=== PATIENT | female | born 1980 | race Caucasian/White ===

== ENCOUNTER 2016-08-11 02:54 | Emergency (ER) ==
[2016-08-11] MEDS ORDERED: ZOFRAN IM ONE (03:07)
[2016-08-11] MEDS ORDERED: SODIUM CHLORIDE 0.9% INJ ONE ×2 (03:28)
[2016-08-11] MEDS ORDERED: PROTONIX IV ONE (03:28)
[2016-08-11] MEDS ORDERED: M.V.I.-12 10 ML, FOLIC ACID 1 MG, MAGNESIUM SULFATE 1 GM, THIAMINE 100 MG in NS 1,000 ML IV ONE (03:28)
[2016-08-11] MEDS ORDERED: PHENERGAN IV ONE (03:28)
[2016-08-11 03:40] LABS: MANUAL DIFF NEEDED? NO
[2016-08-11 03:42] LABS: BASO% 0.4 % (0.0-0.8); EOS# 0.04 X1000 (0.0-0.7); EOS% 0.6 % (0.0-10.0); HEMOGLOBIN 13.5 g/dL (12.0-16.0); LYMPH# 1.64 X1000 (1.2-3.4); LYMPH% 24.4 % (20.5-51.1); MCHC 32.9 g/dL (33-37); MONO# 0.43 X1000 (0.11-0.59); MONO% 6.4 % (1.7-9.3); MPV 13.4 FL (7.4-10.4); NEUT% 68.2 % (42.2-75.2); PLT 132 X1000 (130-400); RBC 4.36 XMIL (4.2-5.4)
--- NOTE | 2016-08-11 03:48 | PROVIDER DOCUMENTATION ---
HPI-Abdominal Pain/GI Problem - General Chief Complaint: Intoxicated Stated Complaint: VOMITING Time Seen by Provider: 08/11/16 03:27 Allergies/Adverse Reactions: Patient Allergies Allergy/AdvReac Type Severity Reaction Status Date / Time venom-honey bee Allergy ANAPHYLAXIS Verified 08/11/16 03:16 [bee venom (honey bee)] Home Medications: Home Medication List Medication Instructions Recorded Confirmed Last Taken Type Ondansetron Odt [Zofran 4 mg Odt] 4 mg PO Q6H PRN PRN #10 tablet 08/11/16 Unknown Rx Pantoprazole [Protonix] 40 mg PO DAILY@0700 #30 tablet 08/11/16 Unknown Rx - History of Present Illness-ABD Nature of Presenting Problems: upper abdom pain w/nausea since last nitgh /pt was having alot of bacardy shots ...no other medical problems Abdominal Pain Onset Location: reports: epigastric Pain Radiation: reports: epigastric Quality of Pain: reports: burning, cramping, indigestion Severity in ED: reports: moderate Onset/Duration: reports: 1-3 hours ago Timing: reports: still present Associated Symptoms: reports: heartburn, malaise, nausea, vomiting Last BM: 24 hours ago Rectal Bleeding: reports: none Rectal Pain: reports: none Emesis Description: reports: none Bruising or Bleeding Gums?: No Similar Symptoms Previously?: No Recently seen or treated by another doctor?: No Review of Systems - Adult - REVIEW OF SYSTEMS - ADULT Constitutional: reports: see HPI Eyes: reports: see HPI All Other Systems: Reviewed and Negative Past History - Adult - PAST MEDICAL HISTORY-ADULT Review of Records: reports: Old Records Reviewed, Nursing Assessment Review Major Childhood Illnesses: reports: denies history Cardiovascular: reports: denies history Respiratory: reports: denies history Gastrointestinal: reports: denies history Obstetrical/Gynecological: reports: denies history Genitourinary: reports: denies history Musculoskeletal: reports: denies history Neurological: reports: denies history Endocrine/Immune: reports: denies history Other Conditions: reports: denies history - PRIOR SURGERIES/PROCEDURES Surgical/Procedure History: reports: , other (fallopian tube removal) - IMMUNIZATION STATUS Childhood Immunizations: See Nurse Assessment Flu Vaccine: See Nurse Assessment - FAMILY HISTORY Family History: reviewed, not pertinent - SOCIAL HISTORY Smoking: less than 1 pack/day Provider spent 3-5 mins advising pt. on dangers of tobacco.: Discussed manners to quit use, and f/u contacts for add'l counseling. Substance Use: none presently/history of abuse Alcohol Use Frequency: once a week Number of drinks per typical drinking period:: 5-10 drinks Physical Exam-General - PHYSICAL EXAM-ADULT Initial Vital Signs Reviewed: Yes - CONSTITUTIONAL General Appearance: alert, anxious - EYES Eyes: PERRL/EOMI - HEAD, EARS, NOSE, MOUTH & THROAT HENMT: normocephalic/atraumatic, normal ENT inspection, TMs normal, pharynx normal - NECK Neck: non-tender - RESPIRATORY Respiratory: chest non-tender, lungs clear, normal breath sounds, no pleuratic chest pain, no respiratory distress, no accessory muscle use - CARDIOVASCULAR Cardiovascular: normal peripheral pulses, regular rate, rhythm, no edema - GASTROINTESTINAL (ABDOMEN) Abdominal Exam: normal bowel sounds, soft, no organomegaly, no pulsatile mass, tenderness (epigastric) - LYMPHATIC Lymphatic: no adenopathy - MUSCULOSKELETAL Back Exam: normal inspection, no CVA tenderness, no vertebral tenderness Extremity: normal inspection, no pedal edema, no calf tenderness, normal capillary refill - SKIN Integumentary: normal color, normal turgor, warm/dry - NEUROLOGIC Neurologic: back tender pulp drier II-XII nml as tested, grossly normal, no motor/sensory deficits - PSYCHIATRIC Psych/Mental Status: normal mood/affect, oriented x 3 Departure - Departure Time of Disposition Order: 04:22 DIAGNOSIS: Abdominal pain, ETOH abuse Disposition: HOME 01 Certified Medical Emergency: Emergent Condition: Stable Prescriptions: Pantoprazole [Protonix] 40 mg PO DAILY@0700 #30 tablet Ondansetron Odt [Zofran 4 mg Odt] 4 mg PO Q6H PRN PRN #10 tablet PRN Reason: Nausea And Vomiting Referrals: None,PCP [Primary Care Provider] -
[2016-08-11 04:12] LABS: AGAP 14; ALBUMIN 4.4 g/dL (3.5-5.0); ALKALINE PHOSPHATASE 47 U/L (32-104); BUN 7 mg/dL (8-22); CALCIUM 8.8 mg/dL (8.8-10.2); CHLORIDE 107 mmol/L (98-107); COSMO 284; GOT 12 U/L (10-30); GPT 10 U/L (10-36); MAGNESIUM 2.1 mg/dL (1.5-2.7); POTASSIUM 3.8 mmol/L (3.5-5.1); SODIUM 143 mmol/L (136-145); TCO2 22 mmol/L (25-35); TOTAL BILIRUBIN 0.13 mg/dL (0.20-1.00); TOTAL PROTEIN 7.1 g/dL (6.3-8.3)
[2016-08-11 05:09] VITALS: BP 98/52
== END 2016-08-11 05:09 | disposition home or self-care (01) ==
LOC: ED 02:54
DX: R10.13 Epigastric pain (principal); R10.10 Upper abdominal pain, unspecified; F10.10 Alcohol abuse, uncomplicated; R11.2 Nausea with vomiting, unspecified; K30 Functional dyspepsia; R12 Heartburn; R53.81 Other malaise; R10.816 Epigastric abdominal tenderness; F17.210 Nicotine dependence, cigarettes, uncomplicated; Z71.6 Tobacco abuse counseling
CPT/HCPCS: 80053; 83735; 85025; C9113; G0480; J2405; J2550; J3411; J3475; J7030; 80320; S0164

== ENCOUNTER 2016-08-24 04:41 | Emergency (ER) ==
[2016-08-24] MEDS ORDERED: DILAUDID IV ONE (05:15)
[2016-08-24] MEDS ORDERED: NS 1,000 ML IV ONE (05:15)
[2016-08-24] MEDS ORDERED: ZOFRAN IV ONE (05:16)
--- NOTE | 2016-08-24 05:27 | PROVIDER DOCUMENTATION ---
HPI-Abdominal Pain/GI Problem - General Source: patient - History of Present Illness-ABD Nature of Presenting Problems: 35 yo WF awoke from sleep about 2 hours ago with severe , cramping flank pain radiating towards groin and nausea but no vomiting. She denies hematuria and any history of kidney stones or GB disease. Abdominal Pain Onset Location: reports: RUQ, flank Pain Radiation: reports: groin Quality of Pain: reports: cramping, sharp Severity in ED: reports: severe Onset/Duration: reports: 1-3 hours ago Timing: reports: still present, getting worse Activities at Onset: reports: sleep Exposure to sick contacts?: No Modifying Factors: improves with: movement, other (standing) Associated Symptoms: reports: nausea Last BM: unsure Rectal Bleeding: reports: none Rectal Pain: reports: none # of Vomiting Episodes: 0 Bruising or Bleeding Gums?: No Similar Symptoms Previously?: No Recently seen or treated by another doctor?: No <Atul Corona - Last Filed: 08/24/16 05:58> <Mark Blanco - Last Filed: 08/25/16 10:31> - General Chief Complaint: Flank Pain Stated Complaint: RT SIDE PAIN, NAUSEA Time Seen by Provider: 08/24/16 05:00 Allergies/Adverse Reactions: Patient Allergies Allergy/AdvReac Type Severity Reaction Status Date / Time venom-honey bee Allergy Severe ANAPHYLAXIS Verified 08/24/16 04:48 [bee venom (honey bee)] Home Medications: Home Medication List Medication Instructions Recorded Confirmed Last Taken Type Ciprofloxacin HCl [Cipro] 500 mg PO BID #14 tablet 08/24/16 Unknown Rx Famotidine [Pepcid] 20 mg PO BID #30 tablet 08/24/16 Unknown Rx Ondansetron Odt [Zofran 4 mg Odt] 4 mg PO Q6H PRN PRN #10 tablet 08/24/16 Unknown Rx Tramadol [Ultram] 50 mg PO TID #30 tablet 08/24/16 Unknown Rx Review of Systems - Adult - REVIEW OF SYSTEMS - ADULT Constitutional: reports: no symptoms reported Eyes: reports: no symptoms reported Ears, Nose, Mouth & Throat: reports: no symptoms reported Cardiovascular: reports: no symptoms reported Respiratory: reports: no symptoms reported Gastrointestinal: reports: abdominal pain Genitourinary: reports: dysuria Musculoskeletal: reports: see HPI Integumentary: reports: no symptoms reported Neurological: reports: no symptoms reported Psychiatric: reports: no symptoms reported Endocrine: reports: no symptoms reported Hematologic/Lymphatic: reports: no symptoms reported Allergic/Immunologic: reports: no symptoms reported <Atul Corona - Last Filed: 08/24/16 05:58> Past History - Adult - PAST MEDICAL HISTORY-ADULT Review of Records: reports: Old Records Reviewed, Nursing Assessment Review, Medications Reviewed, Social history reviewed & non-contributory. Major Childhood Illnesses: reports: denies history Cardiovascular: reports: denies history Respiratory: reports: denies history Gastrointestinal: reports: denies history Obstetrical/Gynecological: reports: denies history Genitourinary: reports: denies history Musculoskeletal: reports: denies history Neurological: reports: denies history Endocrine/Immune: reports: denies history Other Conditions: reports: denies history - PRIOR SURGERIES/PROCEDURES Surgical/Procedure History: reports: , other (fallopian tube removal) - IMMUNIZATION STATUS Childhood Immunizations: See Nurse Assessment Flu Vaccine: See Nurse Assessment - FAMILY HISTORY Family History: reviewed, not pertinent <Atul Corona - Last Filed: 08/24/16 05:58> Physical Exam-General - PHYSICAL EXAM-ADULT Initial Vital Signs Reviewed: Yes - CONSTITUTIONAL General Appearance: alert, moderate distress - EYES Eyes: PERRL/EOMI, pink conjunctivae - HEAD, EARS, NOSE, MOUTH & THROAT HENMT: normocephalic/atraumatic, moist mucous membranes, normal ENT inspection - NECK Neck: non-tender, full range of motion, supple - RESPIRATORY Respiratory: chest non-tender, lungs clear, normal breath sounds - CARDIOVASCULAR Cardiovascular: normal peripheral pulses, regular rate, rhythm - CHEST (BREASTS) Chest/Breast: deferred - GASTROINTESTINAL (ABDOMEN) Abdominal Exam: normal bowel sounds, no pulsatile mass, tenderness, Zelaya's sign, psoas - GENITOURINARY Female Genitalia/Pelvic Exam: deferred Rectal Exam: deferred - LYMPHATIC Lymphatic: no adenopathy - MUSCULOSKELETAL Back Exam: CVA tenderness Extremity: normal range of motion Peripheral Pulses: radial (R): 3+, radial (L): 3+ - SKIN Integumentary: normal color, normal turgor, warm/dry - NEUROLOGIC Neurologic: grossly normal - PSYCHIATRIC Psych/Mental Status: normal mood/affect <Atul Corona - Last Filed: 08/24/16 05:58> Progress - PLAN OF CARE/RESULTS Progress/Plan/Lab Results: Orders Category Date Time Status CT ABD/PELVIS W/ IV CONT ONLY [CT] Stat Exams 08/24/16 05:13 Ordered CBC WITH ELECTRONIC DIFF [HEME] Stat Lab 08/24/16 05:12 Uncollected COMPREHENSIVE METABOLIC PANEL [CHEM] Stat Lab 08/24/16 05:12 Uncollected UA NIMS W/REFLEX CULT [URINALYSIS] Stat Lab 08/24/16 05:12 Uncollected 0.9% Sodium Chloride Inj [Ns] 1,000 ml Med 08/24/16 05:15 Active IV 999 mls/hr Hydromorphone [Dilaudid] Med 08/24/16 05:15 Discontinued 1 mg IV NOW ONE Ondansetron [Zofran] Med 08/24/16 05:16 Discontinued 4 mg IV NOW ONE Vital Signs Temp Pulse Resp BP Pulse Ox 08/24/16 04:46 97.7 F 86 16 119/68 100 venom-honey bee [bee venom (honey bee)] Allergy (Severe, Verified 08/24/16 04:48 ) ANAPHYLAXIS No Home Medications 08/24/16 I&O 08/22/16 08/23/16 08/24/16 06:59 06:59 06:59 Output Total 40 Balance -40 Laboratory Tests 08/24/16 08/24/16 05:25 05:47 WBC 5.52 RBC 4.27 Hgb 13.2 Hct 40.8 MCV 95.6 MCH 30.9 MCHC 32.4 L RDW Std Deviation 13.6 Plt Count 121 L MPV 13.4 H Immature Gran % (Auto) 0.0 Neut % (Auto) 56.3 Lymph % (Auto) 31.0 Dillon % (Auto) 9.8 H Eos % (Auto) 2.2 Baso % (Auto) 0.7 Immature Gran # (Auto) 0.00 Neut # (Auto) 3.11 Lymph # (Auto) 1.71 Dillon # (Auto) 0.54 Eos # (Auto) 0.12 Baso # (Auto) 0.04 Urine Source CLEAN CATCH Urine Color YELLOW Urine Turbidity CLEAR Urine pH 5.5 Ur Specific Keeling 1.021 Urine Protein NEGATIVE Ur Glucose (Stick) NEGATIVE Ur Ketones (Stick) NEGATIVE Urine Blood NEGATIVE Urine Nitrite NEGATIVE Urine Bilirubin NEGATIVE Urobilinogen Dipstick NORMAL Urine Leukocytes MODERATE A Urine WBC (Auto) 10-20 A Urine RBC (Auto) <10 U Epithel Cells (Auto) <10 Urine Bacteria (Auto) 3+ - CHANGE OF SHIFT REPORT (ED Provider) Report Given and Care Transferred to:: Dr Blanco Time of Transfer: 06:00 Items Pending: CT/MRI Results, Pain Control Tentative Impression of Patient: GB dz or kidney stone <Atul Corona - Last Filed: 08/24/16 05:58> Departure <Atul Corona - Last Filed: 08/24/16 05:58> - Departure Time of Disposition Order: 16:00 Certified Medical Emergency: Emergent <Mark Blanco - Last Filed: 08/25/16 10:31> - Departure DIAGNOSIS: UTI (urinary tract infection), Abdominal pain Disposition: HOME 01 Condition: Stable Additional Instructions: ED Follow Up Instructions: You have been treated by a care provider in the Emergency Department. These instructions are being provided to you so you can have an understanding of how to care for yourself upon discharge. Upon discharge from the Emergency Department, you are responsible for making arrangements for follow-up care by a physician of your choice. Take all prescribed medications as directed. Return to the Emergency Department immediately for any new or worsening symptoms. You may call the Physician Referral phone number at [phone] to obtain a list of Physicians who are taking new patients. Prescriptions: Ciprofloxacin HCl [Cipro] 500 mg PO BID #14 tablet Famotidine [Pepcid] 20 mg PO BID #30 tablet Tramadol [Ultram] 50 mg PO TID #30 tablet Ondansetron Odt [Zofran 4 mg Odt] 4 mg PO Q6H PRN PRN #10 tablet PRN Reason: Nausea And Vomiting Referrals: None,PCP [Primary Care Provider] - Mildred Mckinnon MD [STAFF PHYSICIAN] - Forms: Return to School/Parent Work Instructions: Urinary Tract Infection, [id number], Abdominal Pain, Adult, [id number] Physician Attestation
[2016-08-24 05:48] LABS: MANUAL DIFF NEEDED? NO
[2016-08-24 05:48] LABS: URINE MICRO REVIEW NEEDED? NO; URINE SOURCE CLEAN CATCH
[2016-08-24 05:52] LABS: BASO% 0.7 % (0.0-0.8); EOS# 0.12 X1000 (0.0-0.7); EOS% 2.2 % (0.0-10.0); HEMATOCRIT 40.8 % (37.0-47.0); HEMOGLOBIN 13.2 g/dL (12.0-16.0); LYMPH# 1.71 X1000 (1.2-3.4); MCH 30.9 PG (27-31); MCHC 32.4 g/dL (33-37); MCV 95.6 FL (81-99); MONO# 0.54 X1000 (0.11-0.59); MONO% 9.8 % (1.7-9.3); MPV 13.4 FL (7.4-10.4); NEUT% 56.3 % (42.2-75.2); PLT 121 X1000 (130-400); RBC 4.27 XMIL (4.2-5.4)
[2016-08-24 05:52] LABS: BILIRUBIN URINE NEGATIVE (NEGATIVE); BLOOD URINE NEGATIVE (NEGATIVE); COLOR YELLOW; GLUCOSE URINE NEGATIVE (NEGATIVE); LEUKOCYTES URINE MODERATE (NEGATIVE); NITRITE URINE NEGATIVE (NEGATIVE); PH URINE 5.5; PROTEIN URINE NEGATIVE (NEGATIVE); SP GRAVITY URINE 1.021; TURBIDITY URINE CLEAR (CLEAR); UROBILINOGEN URINE NORMAL (NORMAL)
[2016-08-24 05:53] LABS: UR EPITHELIAL CELLS <10 /HPF (<10); URINE BACTERIA 3+ /HPF; URINE CULTURE NEEDED? YES; URINE RBC <10 /HPF (<10)
[2016-08-24] MEDS ORDERED: ROCEPHIN 1 GM/NS 50 ML IV ONE (06:13)
[2016-08-24 06:16] LABS: AGAP 11; ALBUMIN 3.9 g/dL (3.5-5.0); ALKALINE PHOSPHATASE 44 U/L (32-104); BUN 14 mg/dL (8-22); CALCIUM 8.7 mg/dL (8.8-10.2); CHLORIDE 107 mmol/L (98-107); COSMO 282; GOT 11 U/L (10-30); GPT 7 U/L (10-36); POTASSIUM 3.7 mmol/L (3.5-5.1); SODIUM 141 mmol/L (136-145); TCO2 23 mmol/L (25-35); TOTAL BILIRUBIN < 0.10 mg/dL (0.20-1.00); TOTAL PROTEIN 6.4 g/dL (6.3-8.3)
--- NOTE | 2016-08-24 07:51 | Diag Imaging Result Document ---
PROCEDURE NAME: CT ABD/PELVIS W/ IV CONT ONLY - 08/24/2016 CT OF THE ABDOMEN WITH INTRAVENOUS CONTRAST: FINDINGS: There is some subpleural atelectasis or fibrosis in the lateral costophrenic sulcus of the right lower lobe. The gallbladder is not distended. There is mild intrahepatic biliary dilatation, however, the common bile duct is not distended measuring only 5.7 mm. The pancreatic duct is prominent and in the head measures 4 mm in diameter. The adrenal glands and spleen are not enlarged. The kidneys are within normal limits. There is no evidence of bowel obstruction. There is a moderate amount of stool throughout the colon. The appendix is normal in appearance. There is no significant adenopathy. CT OF THE PELVIS WITH INTRAVENOUS CONTRAST: FINDINGS: There are cysts in both ovaries; the largest on the right side measuring 16 mm. There is a small amount of free fluid in the cul de sac. The regional skeleton appears to be intact. IMPRESSION: 1. Pancreatic ductal dilatation out of proportion to the common bile duct and intrahepatic bile ducts. No definite evidence of pancreatitis or cholecystitis. The possibility of a recently passed stone cannot be entirely excluded. 2. Mild constipation. 3. Bilateral ovarian cysts and nonspecific free pelvic fluid.
[2016-08-24 08:21] VITALS: BP 104/62
== END 2016-08-24 08:21 | disposition home or self-care (01) ==
LOC: ED 04:41
DX: N39.0 Urinary tract infection, site not specified (principal); R10.11 Right upper quadrant pain; R10.9 Unspecified abdominal pain; K59.00 Constipation, unspecified; N83.202 Unspecified ovarian cyst, left side; N83.201 Unspecified ovarian cyst, right side; R11.0 Nausea; R30.0 Dysuria
CPT/HCPCS: 74177; 80053; 81001; 85025; 87088; J0696; J1170; J2405; J7030; Q9967